=== PATIENT | female | born 1960 | race Caucasian/White ===

== ENCOUNTER → 2018-03-09 | Outpatient (CLI) | payer BC ==
--- NOTE | 2018-03-09 16:07 | WOMENS IMAGING REPORT ---
EXAM DESCRIPTION: BILAT SCREENING MAMMO W/CAD COMPLETED DATE/TIME: 03/09/2018 3:53 pm REASON FOR STUDY: SCREENING [id number] ENCNTR SCREEN MAMMOGRAM FOR MALIGNANT NEOPLASM OF MAITE COMPARISON: 08/28/2014. TECHNIQUE: Standard craniocaudal and mediolateral oblique views of each breast recorded using digita l acquisition. LIMITATIONS: None. FINDINGS: RIGHT BREAST MASSES: No suspicious masses. CALCIFICATIONS: No new or suspicious calcifications. ARCHITECTURAL DISTORTION: None. DEVELOPING DENSITY: Possible developing density in the upper-outer breast, located 10 to 11 cm from t he nipple. ASYMMETRY: None noted. OTHER: No other significant findings. LEFT BREAST MASSES: No suspicious masses. CALCIFICATIONS: No new or suspicious calcifications. ARCHITECTURAL DISTORTION: None. DEVELOPING DENSITY: None. ASYMMETRY: None noted. OTHER: No other significant findings. Read with the assistance of CAD. .[facility] - R2 Cenova Version 1.3 .[facility] - R2 Cenova Version 1.3 .[facility] Imaging - R2 Cenova Version 2.4 .[facility] [place] - R2 Cenova Version 2.4 .[facility] - R2 Radar Signal Processing Engineer Version 9.2 IMPRESSION: Possible developing density in the upper-outer right breast. Stable mammographic appear ance of the left breast. BREAST DENSITY: c. The breasts are heterogeneously dense, which may obscure small masses. BIRAD: 0 Incomplete: Needs Additional Imaging Evaluation and/or prior Mammograms for Comparison. RECOMMENDATION: RECOMMENDED FOLLOW-UP: Recommend additional evaluation with breast tomosynthesis (pr eferred) or compression views of the right breast and ultrasound of the right breast. Recommend rout ine screening mammography of the left breast. The patient will be contacted for additional imaging. COMMENT: The patient has been notified of the results by letter per SA requirements. Additional no tification policies are in place for contacting patient with suspicious or incomplete findings. Quality ID #[id number]: The [employer] recommends an annual screening mammogram for women aged 40 years or over. This facility utilizes a reminder system to ensure that all patients receive reminder letters, and/or direct phone calls for appointments. This includes reminders for routine scr eening mammograms, diagnostic mammograms, or other Breast Imaging Interventions when appropriate. Th is patient will be placed in the appropriate reminder system. The [employer] (ACR) has developed recommendations for screening MRI of the breast s in certain patient populations, to be used in conjunction with mammography. Breast MRI surveillanc e may be appropriate for women with more than 20% lifetime risk of developing breast cancer as deter mined by genetic testing, significant family history of the disease, or history of mantle radiation f or Hodgkins Disease. ACR Practice Guidelines 2008. TECHNICAL DOCUMENTATION: FINDING NUMBER: (1) ASSESSMENT: (1) JOB ID: [id number] [employer]- All Rights Reserved Reading location - IP/workstation name: [email or web address]
== END ==
LOC: WI 15:28
PROVIDERS: ATTEND Family Medicine
DX: Z12.31 Encounter for screening mammogram for malignant neoplasm of breast (principal); R92.2 Inconclusive mammogram
CPT/HCPCS: 77067

== ENCOUNTER → 2018-03-30 | Outpatient (CLI) | payer BC ==
--- NOTE | 2018-03-30 16:52 | WOMENS IMAGING REPORT ---
EXAM DESCRIPTION: RIGHT DIAGNOSTIC MAMMO W/CAD COMPLETED DATE/TIME: 03/30/2018 8:25 am REASON FOR STUDY: N63.11 UNSPECIFIED LUMP IN THE RIGHT BREAST, UPPER OUTER QUADRANT N63.11 UNSPECIF IED LUMP IN THE RIGHT BREAST, UPPER OUTER MARU COMPARISON: Multiple since 2014 TECHNIQUE: Cone compression craniocaudal and mediolateral oblique images of the breast recorded with digital acquisition. Right breast 90 mediolateral view. Right breast ultrasound was also performed LIMITATIONS: None. FINDINGS: BREAST: Right MASSES: No suspicious masses. CALCIFICATIONS: No new or suspicious calcifications. ARCHITECTURAL DISTORTION: None. DEVELOPING DENSITY: None. ASYMMETRY: None noted. OTHER: No other significant findings. Read with the assistance of CAD. .[facility] - R2 Cenova Version 1.3 .[facility] Imaging - R2 Cenova Version 2.1 .[facility] Imaging - R2 Cenova Version 2.4 .[facility] - R2 Cenova Version 2.4 .[facility] - R2 Yarn Bleaching Machine Operator Version 9.2 Right breast ultrasound: Ultrasound of the right breast far upper outer quadrant was performed. No discrete cystic or solid l esions are identified. No focal findings. No worrisome acoustic absorption. IMPRESSION: No mammographic or sonographic evidence for malignancy right breast BREAST DENSITY: c. The breasts are heterogeneously dense, which may obscure small masses. BIRAD: 1 Negative. RECOMMENDATION: RECOMMENDED FOLLOW UP: Please continue yearly bilateral screening mammography/ tomos ynthesis. Please consider yearly bilateral tomosynthesis given heterogeneously dense fibroglandular tissue. SPECIFIC INTERVENTION/IMAGING/CONSULTATION RECOMMENDED:No additional intervention/ imaging/consultati on needed at this time. COMMUNICATION:The negative/benign results were communicated to the patient. COMMENT: The patient has been notified of the results by letter per SA requirements. Additional no tification policies are in place for contacting patient with suspicious or incomplete findings. Quality ID #225: The [employer] recommends an annual screening mammogram for women aged 40 years or over. This facility utilizes a reminder system to ensure that all patients receive reminder letters, and/or direct phone calls for appointments. This includes reminders for routine scr eening mammograms, diagnostic mammograms, or other Breast Imaging Interventions when appropriate. Th is patient will be placed in the appropriate reminder system. The [employer] (ACR) has developed recommendations for screening MRI of the breast s in certain patient populations, to be used in conjunction with mammography. Breast MRI surveillanc e may be appropriate for women with more than 20% lifetime risk of developing breast cancer as deter mined by genetic testing, significant family history of the disease, or history of mantle radiation f or Hodgkins Disease. ACR Practice Guidelines 2008. TECHNICAL DOCUMENTATION: FINDING NUMBER: (1) ASSESSMENT: (1) JOB ID: [id number] [employer]- All Rights Reserved Reading location - IP/workstation name: [email or web address]
--- NOTE | 2018-03-30 17:19 | WOMENS IMAGING REPORT ---
EXAM DESCRIPTION: U/S BREAST UNILAT LIMITED COMPLETE DATE/TIME: 03/30/2018 9:01 am REASON FOR STUDY: N63.11 RIGHT BREAST DENSITY N63.11 UNSPECIFIED LUMP IN THE RIGHT BREAST, UPPER OU TER MARU FINDINGS: Please see combined report for performance of procedure and radiologic supervision and int erpretation. IMPRESSION: Please see combined report for performance of procedure and radiologic supervision and i nterpretation. Reading location - IP/workstation name: [email or web address]
== END ==
LOC: WI 07:49
PROVIDERS: ATTEND Family Medicine
DX: N63.11 Unspecified lump in the right breast, upper outer quadrant (principal)
CPT/HCPCS: 76642

== ENCOUNTER 2018-04-29 06:51 | Observation (INO) | payer BC ==
[2018-04-29] MEDS ORDERED: ASPIRIN 81 MG TABLET, CHEWABLE PO ONE (07:22)
--- NOTE | 2018-04-29 07:30 | RADIOLOGY REPORT (SQ) ---
EXAM: CT head without IV contrast CLINICAL DATA: 58-year-old female with facial droop TECHNICAL DATA: Multiple axial CT images of the brain were performed followed by sagittal and coronal reconstructed images. The CT study is performed according to ALARA (as low as reasonably achievable) or ALARA/IMAGE GENTLY, with automatic adjustment of mA and/or kV according to patient size. Performed on: 04/29/2018 at 6:57 AM Comparisons: None. FINDINGS: There is no evidence of mass, acute mass effect or midline shift. There are no acute extra-axial fluid collections. There is no evidence of acute intracranial hemorrhage. The cerebral sulci and ventricles are normal in size and configuration. There are scattered patchy areas of decreased subcortical and periventricular attenuation most consistent with mild chronic microangiopathy.. There is a very small focal area of encephalomalacia within the right frontal lobe. There is no significant mucosal thickening of the paranasal sinuses. The mastoid air cells are clear. The orbital contents are grossly unremarkable. No acute osseous abnormalities are identified. No focal soft tissue abnormalities are identified. IMPRESSION: 1. There is no evidence of acute intracranial pathology. 2. 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
[2018-04-29 08:27] LABS: ABSOLUTE MONOCYTES (AUTO) 0.3 10^3/uL (0.1-1.4); ABSOLUTE NEUT (AUTO) 1.6 10^3/uL (1.7-8.2); BASOPHILS % (AUTO) 0.7 % (0-2); HEMOGLOBIN 13.3 g/dL (12.0-15.5); LYMPHOCYTES % (AUTO) 33.5 % (13-45); MEAN CORPUSCULAR HEMOGLOBIN 29.5 pg (27.0-33.4); MEAN CORPUSCULAR HGB CONC 34.1 g/dL (32.0-36.0); MEAN CORPUSCULAR VOLUME 86 fl (80-97); MONOCYTES % (AUTO) 10.3 % (3-13); PLATELET COUNT 139 10^3/uL (150-450); RED BLOOD COUNT 4.52 10^6/uL (3.72-5.28); SEGMENTED NEUTROPHILS % (AUTO) 54.5 % (42-78); TOTAL CELLS COUNTED % (AUTO) 100 %
[2018-04-29 08:28] LABS: INTERNATIONAL RATION (INR) 0.93
--- NOTE | 2018-04-29 08:33 | RADIOLOGY REPORT (SQ) ---
EXAM DESCRIPTION: CHEST 2 VIEWS COMPLETED DATE/TIME: 04/29/2018 7:34 am REASON FOR STUDY: facial droop COMPARISON: None. EXAM PARAMETERS: NUMBER OF VIEWS: two views TECHNIQUE: Digital Frontal and Lateral radiographic views of the chest acquired. RADIATION DOSE: NA LIMITATIONS: none FINDINGS: LUNGS AND PLEURA: No opacities, masses or pneumothorax. No pleural effusion. MEDIASTINUM AND HILAR STRUCTURES: No masses or contour abnormalities. HEART AND VASCULAR STRUCTURES: Heart normal size. No evidence for failure. BONES: No acute findings. HARDWARE: None in the chest. OTHER: No other significant finding. IMPRESSION: NO ACUTE RADIOGRAPHIC FINDING IN THE CHEST. TECHNICAL DOCUMENTATION: JOB ID: [id number] [email or web address]- All Rights Reserved Reading location - IP/workstation name: [email or web address]
[2018-04-29 08:51] LABS: ALANINE AMINOTRANSFERASE 40 U/L (9-52); ALBUMIN 4.6 g/dL (3.5-5.0); ALKALINE PHOSPHATASE 73 U/L (38-126); ANION GAP 11 (5-19); ASPARTATE AMINO TRANSFERASE 35 U/L (14-36); BILIRUBIN,DIRECT 0.1 mg/dL (0.0-0.4); BILIRUBIN,TOTAL 0.6 mg/dL (0.2-1.3); BLOOD UREA NITROGEN 20 mg/dL (7-20); CALCIUM 10.3 mg/dL (8.4-10.2); CARBON DIOXIDE 24 mmol/L (22-30); CHLORIDE 105 mmol/L (98-107); CHOLESTEROL 209.06 mg/dL (0-200); CREATINE KINASE 60 U/L (30-135); GLUCOSE 97 mg/dL (75-110); POTASSIUM 3.9 mmol/L (3.6-5.0); SODIUM 140.2 mmol/L (137-145); TOTAL PROTEIN 7.6 g/dL (6.3-8.2); TRIGLYCERIDES 55 mg/dL (<150)
[2018-04-29 09:04] LABS: CREATINE KINASE MB 0.34 ng/mL (<4.55); DIRECT LDL 105 mg/dL (<100)
[2018-04-29 09:09] LABS: TROPONIN I < 0.012 ng/mL
--- NOTE | 2018-04-29 10:15 | ER Document Report ---
ED General - General Chief Complaint: Facial Droop Stated Complaint: FACIAL DROOP Time Seen by Provider: 04/29/18 07:22 TRAVEL OUTSIDE OF THE [place] 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 Patient denies any cardiac issues denies any arrhythmias patient states she does take medication for high blood pressures. Patient denies history of cardiac heart attack or stroke in the past. Patient otherwise resting comfortably upon my evaluation. - Related Data Allergies/Adverse Reactions: No Known Allergies Allergy (Unverified 04/29/18 08:10) Past Medical History - Social History Smoking Status: Never Smoker Frequency of alcohol use: Rare Family History: Reviewed & Not Pertinent Patient has suicidal ideation: No Patient has homicidal ideation: No Renal/ Medical History: Denies: Hx Peritoneal Dialysis Review of Systems - Review of Systems Constitutional: No symptoms reported EENT: No symptoms reported Cardiovascular: No symptoms reported Respiratory: No symptoms reported Gastrointestinal: No symptoms reported Genitourinary: No symptoms reported Female Genitourinary: No symptoms reported Musculoskeletal: No symptoms reported Skin: No symptoms reported Hematologic/Lymphatic: No symptoms reported Neurological/Psychological: Other - Facial drooping difficulty speaking -: Yes All other systems reviewed and negative Physical Exam - Vital signs Vitals: Pulse Resp BP Pulse Ox 80 15 142/79 H 98 04/29/18 07:01 04/29/18 07:01 04/29/18 07:01 04/29/18 07:01 Interpretation: Normal - General General appearance: Appears well, Alert - HEENT Head: Normocephalic, Atraumatic Eyes: Normal Pupils: PERRL - Respiratory Respiratory status: No respiratory distress Chest status: Nontender Breath sounds: Normal Chest palpation: Normal - Cardiovascular Rhythm: Regular Heart sounds: Normal auscultation Murmur: No - Abdominal Inspection: Normal Distension: No distension Bowel sounds: Normal Tenderness: Nontender Organomegaly: No organomegaly - Back Back: Normal, Nontender - Extremities General upper extremity: Normal inspection, Nontender, Normal color, Normal ROM, Normal temperature General lower extremity: Normal inspection, Nontender, Normal color, Normal ROM, Normal temperature, Normal weight bearing. 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 Possible Dockery's palsy versus TIA. Discussed with hospital staff agreed to continue workup with the patient - Vital Signs Vital signs: Temp Pulse Resp BP Pulse Ox 97.9 F 65 16 124/65 100 04/29/18 12:46 04/29/18 12:46 04/29/18 12:46 04/29/18 12:46 04/29/18 12:46 - Laboratory Result Diagrams: 04/29/18 08:02 04/29/18 08:02 Laboratory results interpreted by me: 04/29/18 04/29/18 08:02 08:02 WBC 3.0 L Plt Count 139 L Absolute Neutrophils 1.6 L Est GFR ( Amer) 57 L Est GFR (Non-Af Amer) 47 L Calcium 10.3 H Cholesterol 209.06 H LDL Cholesterol Direct 105 H Discharge - Discharge Clinical Impression: Right facial numbness Condition: Good Disposition: ADMITTED OBSERVATION Admitting Provider: Efrenist - Jemma/[facility]ado Unit Admitted: Telemetry
[2018-04-29] MEDS ORDERED: ACETAMINOPHEN 325 MG TABLET PO PRN (12:14)
[2018-04-29] MEDS: HEPARIN SOD (PORCINE) 5,000 UNIT/ML 1 ML SYRINGE SUBCUT SCH ×2 (15:22→22:42)
--- NOTE | 2018-04-29 15:55 | RADIOLOGY REPORT (SQ) ---
EXAM DESCRIPTION: CAROTID DOPPLER COMPLETED DATE/TIME: 04/29/2018 3:23 pm REASON FOR STUDY: facial numbness COMPARISON: CT brain 04/29/2018 TECHNIQUE: Grayscale ultrasound, Doppler velocity and spectra, and color Doppler images acquired of the extra-cranial carotid and vertebral arteries. Images stored on PACS. LIMITATIONS: None. FINDINGS: RIGHT CAROTID CCA Velocities: Within normal limits. Right common carotid artery peak systolic velocity 0.97 m/sec ICA Velocities Peak systolic 0.62 m/s. End diastolic 0.21 m/s. Proximal ICA/CCA peak systolic ratio normal. Spectra normal. No significant plaque. LEFT CAROTID CCA Velocities: Within normal limits. Left common carotid artery peak systolic velocity 0.92 m/sec ICA Velocities Peak systolic 0.72 m/s. End diastolic 0.23 m/s. Proximal ICA/CCA peak systolic ratio normal. Spectra normal. No significant plaque. VERTEBRAL ARTERIES: Antegrade flow. Normal waveforms. SUBCLAVIAN ARTERIES: Not evaluated OTHER: No other significant finding. IMPRESSION: NO HEMODYNAMICALLY SIGNIFICANT STENOSIS. COMMENT: Quality ID #[id number]: Velocity criteria are extrapolated from the diameter data as defined by t he Society of Radiologists in Ultrasound Consensus Conference. Radiology 2003: 229; 340-346. TECHNICAL DOCUMENTATION: JOB ID: [id number] [employer]- All Rights Reserved Reading location - IP/workstation name: [email or web address]
--- NOTE | 2018-04-29 16:01 | PDOC H&P ---
History of Present Illness Admission Date/PCP: 04/29/18 10:28 WOLFGANG GARCIA MD Patient complains of: Facial numbness. History of Present Illness: FEDERICO MADDEN is a 58 year old female past medical history of hypertension. 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 Does not appear to have any tearing or eye droop. Patient denies any cardiac issues denies any arrhythmias patient states she does take medication for high blood pressures. Patient denies history of cardiac heart attack or stroke in the past. Patient otherwise resting comfortably upon my evaluation. CT of the head was found to be unremarkable and the patient's been referred to the hospitalist for observation and management. 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 [employer] Lives with: Alone Smoking Status: Never Smoker Frequency of Alcohol Use: Rare Hx Recreational Drug Use: No Hx Prescription Drug Abuse: No - Advance Directive Resuscitation Status: Full Code Family History Family History: Reviewed & Not Pertinent Parental Family History Reviewed: Yes Children Family History Reviewed: Yes Sibling(s) Family History Reviewed.: Yes Medication/Allergy Home Medications: Amlodipine Besylate/Benazepril [Amlodipine-Benazepril 5-20 mg] 1 cap PO DAILY 04/29/18 Aspirin [Aspirin 81 mg Chewable Tablet] 81 mg PO DAILY #30 tab.chew 04/30/18 Atorvastatin Calcium [Lipitor 40 mg Tablet] 40 mg PO QHS #30 tablet 04/30/18 Allergies/Adverse Reactions: No Known Allergies Allergy (Unverified 04/29/18 08:10) Review of Systems Constitutional: ABSENT: chills, fever(s), headache(s), weight gain, weight loss Eyes: ABSENT: visual disturbances Ears: ABSENT: hearing changes Cardiovascular: ABSENT: chest pain, dyspnea on exertion, edema, orthropnea, palpitations Respiratory: ABSENT: cough, hemoptysis Gastrointestinal: ABSENT: abdominal pain, constipation, diarrhea, hematemesis, hematochezia, nausea, vomiting Genitourinary: ABSENT: dysuria, hematuria Musculoskeletal: ABSENT: joint swelling Integumentary: ABSENT: rash, wounds Neurological: ABSENT: abnormal gait, abnormal speech, confusion, dizziness, focal weakness, syncope Psychiatric: ABSENT: anxiety, depression, homidical ideation, suicidal ideation Endocrine: ABSENT: cold intolerance, heat intolerance, polydipsia, polyuria Hematologic/Lymphatic: ABSENT: easy bleeding, easy bruising Physical Exam Vital Signs: Temp Pulse Resp BP Pulse Ox 97.9 F 65 16 124/65 100 04/29/18 12:46 04/29/18 12:46 04/29/18 12:46 04/29/18 12:46 04/29/18 12:46 Intake & Output 04/27/18 04/28/18 04/29/18 23:59 23:59 23:59 Weight 82.1 kg General appearance: PRESENT: no acute distress, well-developed, well-nourished Head exam: PRESENT: atraumatic, normocephalic Eye exam: PRESENT: conjunctiva pink, EOMI, PERRLA. ABSENT: scleral icterus Ear exam: PRESENT: normal external ear exam Mouth exam: PRESENT: moist, tongue midline Neck exam: ABSENT: carotid bruit, JVD, lymphadenopathy, thyromegaly Respiratory exam: PRESENT: clear to auscultation tiffanie. ABSENT: rales, rhonchi, wheezes Cardiovascular exam: PRESENT: RRR. ABSENT: diastolic murmur, rubs, systolic murmur Pulses: PRESENT: normal dorsalis pedis pul Vascular exam: PRESENT: normal capillary refill GI/Abdominal exam: PRESENT: normal bowel sounds, soft. ABSENT: distended, guarding, mass, organolmegaly, rebound, tenderness Rectal exam: PRESENT: deferred Extremities exam: PRESENT: full ROM. ABSENT: calf tenderness, clubbing, pedal edema Neurological exam: PRESENT: alert, awake, oriented to person, oriented to place, oriented to time, oriented to situation, CN II-XII grossly intact. ABSENT: motor sensory deficit Psychiatric exam: PRESENT: appropriate affect, normal mood. ABSENT: homicidal ideation, suicidal ideation Skin exam: PRESENT: dry, intact, warm. ABSENT: cyanosis, rash Results Laboratory Results: 04/29/18 08:02 04/29/18 08:02 04/29/18 04/29/18 08:02 08:02 WBC 3.0 L RBC 4.52 Hgb 13.3 Hct 39.0 MCV 86 MCH 29.5 MCHC 34.1 RDW 14.0 Plt Count 139 L Seg Neutrophils % 54.5 Lymphocytes % 33.5 Monocytes % 10.3 Eosinophils % 1.0 Basophils % 0.7 Absolute Neutrophils 1.6 L Absolute Lymphocytes 1.0 Absolute Monocytes 0.3 Absolute Eosinophils 0.0 Absolute Basophils 0.0 Sodium 140.2 Potassium 3.9 Chloride 105 Carbon Dioxide 24 Anion Gap 11 BUN 20 Creatinine 1.18 Est GFR ( Amer) 57 L Est GFR (Non-Af Amer) 47 L Glucose 97 Calcium 10.3 H Total Bilirubin 0.6 AST 35 ALT 40 Alkaline Phosphatase 73 Total Protein 7.6 Albumin 4.6 Triglycerides 55 Cholesterol 209.06 H LDL Cholesterol Direct 105 H VLDL Cholesterol 11.0 HDL Cholesterol 74 04/29/18 04/29/18 04/29/18 08:02 08:02 14:20 Creatine Kinase 60 CK-MB (CK-2) 0.34 Troponin I < 0.012 < 0.012 Impressions: Head CT 04/29/18 00:00 IMPRESSION: 1. There is no evidence of acute intracranial pathology. 2. 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 Chest X-Ray 04/29/18 07:22 IMPRESSION: NO ACUTE RADIOGRAPHIC FINDING IN THE CHEST. Assessment & Plan - Diagnosis (1) Right facial numbness Is this a current diagnosis for this admission?: Yes Plan: Will monitor the patient to observation. The patient does have a history of Be ll's palsy. Obtain MRI of the brain as well as carotid imaging. (2) Hypertension Qualifiers: Hypertension type: essential hypertension Qualified Code(s): I10 - Essential (primary) hypertension Is this a current diagnosis for this admission?: Yes Plan: Hold the patient's blood pressure medications for now. - Time Time Spent: 50 to 70 Minutes Medications reviewed and adjusted accordingly: Yes Anticipated discharge: Home Within: within 24 hours Disposition: The patient is a full code. Pending patient's symptomatology and diagnostic findings will reevaluate in the a.m.
--- NOTE | 2018-04-29 20:54 | EKG REPORT ---
SEVERITY:- BORDERLINE ECG - SINUS RHYTHM BORDERLINE T ABNORMALITIES, ANT-LAT LEADS : Confirmed by: Patricia Villalobos MD 29-Apr-2018 20:53:25
--- NOTE | 2018-04-29 21:09 | XCELERA REPORT ---
[address] [address] Transthoracic Echocardiogram Report Name: FEDERICO MADDEN Age: 58 yrs Gender: Female : 1960 Patient Status: Inpatient Patient Location: [address] [place] [address] Study Date: 04/29/2018 02:16 PM Height: 65 in Weight: 182 lb BSA: 1.9 m2 Procedure: A two-dimensional transthoracic echocardiogram with color flow Doppler was performed. Study Quality: Good. Reason For Study: TIA History: TIA. Ordering Physician: SOHEILA HIRSCH Performed By: Marcelina Mahajan Interpretation Summary There is no obvious cardiac source of embolus noted on this transthoracic echocardiogram. Follow-up with a [facility] is suggested if cardiac source is still suspected. In the subcostal region there is a non vascular [id number] cm cystic mass seen.It does not communicate with any organ or vascular structure .? Hematoma. The left ventricle is normal in size. There is normal left ventricular wall thickness. The left ventricular ejection fraction is within normal limits. LV EF is 65% Doppler measurements suggest impaired left ventricular relaxation, which is associated with grade I/IV or mild diastolic dysfunction The left ventricular wall motion is normal. There is no thrombus. There is no ventricular septal defect visualized. The right ventricle is normal in size and function. The right atrium is normal. The left atrial size is normal. The interatrial septum is intact with no evidence for an atrial septal defect. There is no Doppler evidence for an interatrial shunt There is no evidence of mitral valve prolapse. There is no vegetation seen on the mitral valve. There is no mitral valve stenosis. There is a mild amount of mitral regurgitation There is no aortic valvular vegetation. There is no aortic valve stenosis There is no LVOT obstruction. There is a mild to moderate amount of aortic regurgitation There is no tricuspid stenosis. There is a trace amount of tricuspid regurgitation Unable to calculate RVSP due lack of TR jet. There is no pulmonic valvular stenosis. There is no pulmonic valvular regurgitation. The aortic root is normal size. The inferior vena cava appeared normal and decreased > 50% with respiration (RAP 5-10 mmHg) There is no pericardial effusion. There is no obvious cardiac source of embolus noted on this transthoracic echocardiogram. Follow-up with a [facility] is suggested if cardiac source is still suspected In the subcostal region there is a non vascular [id number] cm cystic mass seen.It does not communicate with any organ or vascular structure .? Hematoma. MMode/2D Measurements & Calculations RVDd: 2.9 cm LVIDd: 5.2 cm FS: 30.8 % Ao root diam: 3.2 cm IVSd: 0.88 cm LVIDs: 3.6 cm EDV(Teich): LVPWd: 0.88 cm 127.7 ml Ao root area: ESV(Teich): 8.0 cm2 53.6 ml LA dimension: EF(Teich): 58.0 % 3.2 cm LVLd ap4: 8.4 cm SV(MOD-sp4): EDV(MOD-sp4): 67.0 ml 108.0 ml LVLs ap4: 6.4 cm ESV(MOD-sp4): 41.0 ml EF(MOD-sp4): 62.0 % Doppler Measurements & Calculations MV E max darian: MV P1/2t max darian: Ao V2 max: AI max darian: 80.9 cm/sec 81.9 cm/sec 145.9 cm/sec 451.1 cm/sec MV A max darian: MV P1/2t: 67.0 msec Ao max P.5 mmHgAI max P.3 cm/sec MVA(P1/2t): 3.3 cm2 81.4 mmHg MV E/A: 0.90 MV dec slope: AI dec slope: 217.7 cm/sec2 358.2 cm/sec2 AI P1/2t: MV dec time: 606.9 msec 0.22 sec LV V1 max PG: PA V2 max: AV P1/2t-pr_phl: MV P1/2t-pr_phl: 3.7 mmHg 82.9 cm/sec 606.9 msec 67.0 msec LV V1 max: PA max P.8 mmHg 95.8 cm/sec Left Ventricle The left ventricle is normal in size. There is normal left ventricular wall thickness. The left ventricular ejection fraction is within normal limits. LV EF is 65%. Doppler measurements suggest impaired left ventricular relaxation, which is associated with grade I/IV or mild diastolic dysfunction. The left ventricular wall motion is normal. There is no thrombus. There is no ventricular septal defect visualized. Right Ventricle The right ventricle is normal in size and function. Atria The right atrium is normal. The left atrial size is normal. The interatrial septum is intact with no evidence for an atrial septal defect. There is no Doppler evidence for an interatrial shunt. Mitral Valve There is no evidence of mitral valve prolapse. There is no vegetation seen on the mitral valve. There is no mitral valve stenosis. There is a mild amount of mitral regurgitation. Aortic Valve There is no aortic valvular vegetation. There is no aortic valve stenosis. There is no LVOT obstruction. There is a mild to moderate amount of aortic regurgitation. Tricuspid Valve There is no tricuspid stenosis. There is a trace amount of tricuspid regurgitation. Unable to calculate RVSP due lack of TR jet. Pulmonic Valve There is no pulmonic valvular stenosis. There is no pulmonic valvular regurgitation. Great Vessels The aortic root is normal size. The inferior vena cava appeared normal and decreased > 50% with respiration (RAP 5-10 mmHg). Effusions There is no pericardial effusion. : SOHEILA HIRSCH > Patricia Villalobos
[2018-04-29] MEDS ORDERED: ATORVASTATIN CALCIUM 40 MG TABLET PO SCH (22:00)
--- NOTE | 2018-04-29 22:44 | RADIOLOGY REPORT (SQ) ---
EXAM DESCRIPTION: MR BRAIN WITHOUT IV CONTRAST COMPLETED DATE/TME: 04/29/2018 00:00 CLINICAL HISTORY: Facial numbness COMPARISON: None TECHNIQUE: Multiplanar images of the brain were obtained without the administration of intravenous contrast FINDINGS: Ventricles and sulci appear within normal limits for the patient's age. No evidence of midline shift or mass effect. There are low-lying cerebellar tonsils extending 5 mm below the level of the basion opisthion line. Previous areas of infarct in the cerebellar hemispheres bilaterally. Punctate focus of lacunar infarct in the right caudate. Old infarct in the right frontal lobe. No areas of restricted diffusion to suggest acute infarct. Small amount of hemosiderin in the right frontal region along the region of previous infarct as well as some associated gliosis. No extra-axial fluid collection is noted. IMPRESSION: No acute infarct Low-lying cerebellar tonsils Areas of previous infarct in the right frontal lobe and in the cerebellar hemispheres bilaterally Distal vertebral arteries and basilar artery are small in caliber
[2018-04-30] MEDS: HEPARIN SOD (PORCINE) 5,000 UNIT/ML 1 ML SYRINGE SUBCUT SCH (05:48)
--- NOTE | 2018-04-30 09:09 | RADIOLOGY REPORT (SQ) ---
EXAM DESCRIPTION: CT CHEST WITH COMPLETED DATE/TIME: 04/30/2018 8:49 am REASON FOR STUDY: [id number] mass per ECHO COMPARISON: None. TECHNIQUE: CT scan of the chest performed using helical scanning technique with dynamic intravenous contrast injection. Images reviewed with lung, soft tissue and bone windows. Reconstructed coronal and sagittal MPR and MIP images reviewed. All images stored on PACS. All CT scanners at this facility use dose modulation, iterative reconstruction, and/or weight based d osing when appropriate to reduce radiation dose to as low as reasonably achievable (ALARA). [facility]: Dose Right [facility]: CareDose [facility]: Dose Right [facility]: Teradose 4D [facility]: [employer] CONTRAST TYPE AND DOSE: contrast/concentration: Isovue 350.00 mg/ml; Total Contrast Delivered: 80.0 ml; Total Saline Delivered: 55.0 ml RENAL FUNCTION: GFR > 60. RADIATION DOSE: CT Rad equipment meets quality standard of care and radiation dose reduction techniq ues were employed. CTDIvol: 7.2 mGy. DLP: 276 mGy-cm. . LIMITATIONS: None. FINDINGS: LUNGS AND PLEURA: No opacities, nodules, masses. No pneumothorax. No effusions. HILAR AND MEDIASTINAL STRUCTURES: No identified masses or abnormal nodes. HEART AND VASCULAR STRUCTURES: No aneurysm or dissection. No central pulmonary emboli. No pericardi al effusion. HARDWARE: None in the chest. UPPER ABDOMEN: Enormous cyst upper pole left kidney measuring over 13 cm partially visualized. Limit ed exam. THYROID AND OTHER SOFT TISSUES: No masses. No adenopathy. BONES: No significant finding. OTHER: No other significant finding. IMPRESSION: Greater than 13 cm cyst left kidney. No mass in the chest. TECHNICAL DOCUMENTATION: JOB ID: [id number] Quality ID # [id number]: Final reports with documentation of one or more dose reduction techniques (e.g., Au tomated exposure control, adjustment of the mA and/or kV according to patient size, use of iterative reconstruction technique) 2010 [employer]- All Rights Reserved Reading location - IP/workstation name: [email or web address]
[2018-04-30] MEDS ORDERED: ASPIRIN 81 MG TABLET, CHEWABLE PO SCH (10:00)
[2018-04-30 12:30] VITALS: BP 110/55
--- NOTE | 2018-04-30 12:36 | EKG REPORT ---
SEVERITY:- BORDERLINE ECG - SINUS RHYTHM BORDERLINE T ABNORMALITIES, ANT-LAT LEADS : Confirmed by: Patricia Villalobos MD 30-Apr-2018 12:35:40
--- NOTE | 2018-04-30 16:33 | PDOC DISCHARGE SUMMARY ---
General - Admit/Disc Date/PCP Admission Date/Primary Care Provider: 04/29/18 10:28 WOLFGANG GARCIA MD Discharge Date: 04/30/18 - Discharge Diagnosis (1) Cerebrovascular disease Is this a current diagnosis for this admission?: Yes Summary: Old infarcts are noted in the right frontal lobe as well cerebellar hemispheres. I have communicated my recommendation for event monitoring for which the patient wants to set up through her primary care. Have started the patient on aspirin and statin therapy. (2) Hypertension Is this a current diagnosis for this admission?: Yes Summary: Resume the patient's home blood pressure medications. I have strongly encouraged the patient to discontinue estrogen. (3) Renal cyst, left Is this a current diagnosis for this admission?: Yes - Additional Information Resuscitation Status: Full Code Discharge Diet: As Tolerated, Cardiac Discharge Activity: Activity As Tolerated Prescriptions: Aspirin [Aspirin 81 mg Chewable Tablet] 81 mg PO DAILY #30 tab.chew Atorvastatin Calcium [Lipitor 40 mg Tablet] 40 mg PO QHS #30 tablet Home Medications: Amlodipine Besylate/Benazepril [Amlodipine-Benazepril 5-20 mg] 1 cap PO DAILY 04/29/18 Aspirin [Aspirin 81 mg Chewable Tablet] 81 mg PO DAILY #30 tab.chew 04/30/18 Atorvastatin Calcium [Lipitor 40 mg Tablet] 40 mg PO QHS #30 tablet 04/30/18 History of Present Illness Patient complains of: Facial numbness History of Present Illness: FEDERICO MADDEN is a 58 year old female past medical history of hypertension. 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 Does not appear to have any tearing or eye droop. Patient denies any cardiac issues denies any arrhythmias patient states she does take medication for high blood pressures. Patient denies history of cardiac heart attack or stroke in the past. Patient otherwise resting comfortably upon my evaluation. CT of the head was found to be unremarkable and the patient's been referred to the hospitalist for observation and management. Hospital Course Hospital Course: The patient was admitted to continuous telemetry unit. Carotid Doppler, echocardiogram, and MRI of the brain was obtained. Findings were consistent with previous CVAs. The patient was allowed permissive hypertension. Necessary therapies were consulted. The patient has been resumed on her home medications however I have charted the patient to discontinue estrogen given the risk however the patient does not want to do this. This conversation will be deferred to her primary care provider. Patient did have findings of a massive renal cyst that was even detected on echocardiogram. Imaging was obtained and appears to be stable the patient states this is being monitored by her primary care provider on outpatient basis. Patient symptoms have resolved and she is ready for discharge. Physical Exam Vital Signs: Temp Pulse Resp BP Pulse Ox 98.1 F 78 18 110/55 L 97 04/30/18 12:28 04/30/18 12:28 04/30/18 12:28 04/30/18 12:28 04/30/18 12:28 Intake & Output 04/28/18 04/29/18 04/30/18 23:59 23:59 23:59 Intake Total 350 100 Balance 350 100 Weight 82.1 kg 81.9 kg General appearance: PRESENT: no acute distress, well-developed, well-nourished Head exam: PRESENT: atraumatic, normocephalic Eye exam: PRESENT: conjunctiva pink, EOMI, PERRLA. ABSENT: scleral icterus Ear exam: PRESENT: normal external ear exam Mouth exam: PRESENT: moist, tongue midline Neck exam: ABSENT: carotid bruit, JVD, lymphadenopathy, thyromegaly Respiratory exam: PRESENT: clear to auscultation tiffanie. ABSENT: rales, rhonchi, wheezes Cardiovascular exam: PRESENT: RRR. ABSENT: diastolic murmur, rubs, systolic murmur Pulses: PRESENT: normal dorsalis pedis pul Vascular exam: PRESENT: normal capillary refill GI/Abdominal exam: PRESENT: normal bowel sounds, soft. ABSENT: distended, guarding, mass, organolmegaly, rebound, tenderness Rectal exam: PRESENT: deferred Extremities exam: PRESENT: full ROM. ABSENT: calf tenderness, clubbing, pedal edema Neurological exam: PRESENT: alert, awake, oriented to person, oriented to place, oriented to time, oriented to situation, CN II-XII grossly intact. ABSENT: motor sensory deficit Psychiatric exam: PRESENT: appropriate affect, normal mood. ABSENT: homicidal ideation, suicidal ideation Skin exam: PRESENT: dry, intact, warm. ABSENT: cyanosis, rash Results Laboratory Results: WBC 3.0 10^3/uL (4.0-10.5) L 04/29/18 08:02 RBC 4.52 10^6/uL (3.72-5.28) 04/29/18 08:02 Hgb 13.3 g/dL (12.0-15.5) 04/29/18 08:02 Hct 39.0 % (36.0-47.0) 04/29/18 08:02 MCV 86 fl (80-97) 04/29/18 08:02 MCH 29.5 pg (27.0-33.4) 04/29/18 08:02 MCHC 34.1 g/dL (32.0-36.0) 04/29/18 08:02 RDW 14.0 % (11.5-14.0) 04/29/18 08:02 Plt Count 139 10^3/uL (150-450) L 04/29/18 08:02 Seg Neutrophils % 54.5 % (42-78) 04/29/18 08:02 Lymphocytes % 33.5 % (13-45) 04/29/18 08:02 Monocytes % 10.3 % (3-13) 04/29/18 08:02 Eosinophils % 1.0 % (0-6) 04/29/18 08:02 Basophils % 0.7 % (0-2) 04/29/18 08:02 Absolute Neutrophils 1.6 10^3/uL (1.7-8.2) L 04/29/18 08:02 Absolute Lymphocytes 1.0 10^3/uL (0.5-4.7) 04/29/18 08:02 Absolute Monocytes 0.3 10^3/uL (0.1-1.4) 04/29/18 08:02 Absolute Eosinophils 0.0 10^3/uL (0.0-0.6) 04/29/18 08:02 Absolute Basophils 0.0 10^3/uL (0.0-0.2) 04/29/18 08:02 PT 13.0 SEC (11.4-15.4) 04/29/18 08:02 INR 0.93 04/29/18 08:02 Sodium 140.2 mmol/L (137-145) 04/29/18 08:02 Potassium 3.9 mmol/L (3.6-5.0) 04/29/18 08:02 Chloride 105 mmol/L (98-107) 04/29/18 08:02 Carbon Dioxide 24 mmol/L (22-30) 04/29/18 08:02 Anion Gap 11 (5-19) 04/29/18 08:02 BUN 20 mg/dL (7-20) 04/29/18 08:02 Creatinine 1.18 mg/dL (0.52-1.25) 04/29/18 08:02 Est GFR ( Amer) 57 (>60) L 04/29/18 08:02 Est GFR (Non-Af Amer) 47 (>60) L 04/29/18 08:02 Glucose 97 mg/dL (75-110) 04/29/18 08:02 Calcium 10.3 mg/dL (8.4-10.2) H 04/29/18 08:02 Total Bilirubin 0.6 mg/dL (0.2-1.3) 04/29/18 08:02 Direct Bilirubin 0.1 mg/dL (0.0-0.4) 04/29/18 08:02 Neonat Total Bilirubin Not Reportable 04/29/18 08:02 Neonat Direct Bilirubin Not Reportable 04/29/18 08:02 Neonat Indirect Bili Not Reportable 04/29/18 08:02 AST 35 U/L (14-36) 04/29/18 08:02 ALT 40 U/L (9-52) 04/29/18 08:02 Alkaline Phosphatase 73 U/L (38-126) 04/29/18 08:02 Creatine Kinase 60 U/L (30-135) 04/29/18 08:02 CK-MB (CK-2) 0.34 ng/mL (<4.55) 04/29/18 08:02 Troponin I < 0.012 ng/mL 04/29/18 14:20 Total Protein 7.6 g/dL (6.3-8.2) 04/29/18 08:02 Albumin 4.6 g/dL (3.5-5.0) 04/29/18 08:02 Triglycerides 55 mg/dL (<150) 04/29/18 08:02 Cholesterol 209.06 mg/dL (0-200) H 04/29/18 08:02 LDL Cholesterol Direct 105 mg/dL (<100) H 04/29/18 08:02 VLDL Cholesterol 11.0 mg/dL (10-31) 04/29/18 08:02 HDL Cholesterol 74 mg/dL (>40) 04/29/18 08:02 Impressions: Carotid Doppler Study 04/29/18 00:00 IMPRESSION: NO HEMODYNAMICALLY SIGNIFICANT STENOSIS. Head CT 04/29/18 00:00 IMPRESSION: 1. There is no evidence of acute intracranial pathology. 2. 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 Head MRI 04/29/18 00:00 IMPRESSION: No acute infarct Low-lying cerebellar tonsils Areas of previous infarct in the right frontal lobe and in the cerebellar hemispheres bilaterally Distal vertebral arteries and basilar artery are small in caliber Chest X-Ray 04/29/18 07:22 IMPRESSION: NO ACUTE RADIOGRAPHIC FINDING IN THE CHEST. Chest CT 04/30/18 00:00 IMPRESSION: Greater than 13 cm cyst left kidney. No mass in the chest. Qualifiers - * PATIENT BEING DISCHARGED WITH ANY OF THE FOLLOWING DIAGNOSIS: Stroke Stroke Pt being discharged on Anti-thrombolytic therapy?: Yes Stroke Pt being discharged on Anti-coagulation therapy?: No Reason(s) for not prescribing Anti-coagulation therapy:: Not indicated Stroke Pt being discharged on Statins?: Yes Plan Time Spent: Less than 30 Minutes
== END 2018-04-30 12:53 | disposition home or self-care (01) ==
LOC: ER 06:51 → EH 10:28 → 3S 12:45
PROVIDERS: ADMIT Internal Medicine; ATTEND Internal Medicine
DX: I67.9 Cerebrovascular disease, unspecified (principal); I10 Essential (primary) hypertension; N28.1 Cyst of kidney, acquired; Z86.73 Personal history of transient ischemic attack (TIA), and cerebral infarction without residual deficits; Z86.69 Personal history of other diseases of the nervous system and sense organs; Z79.82 Long term (current) use of aspirin; Z79.899 Other long term (current) drug therapy
CPT/HCPCS: 93005 ×2; 99285; 36415; 82553; 82550; 85025; 85610; 80053; 84484; 80061; 93306; 93880; 70551; 71046; 70450; 71260; 93010 ×2; G0378 ×3; J3490 ×2

== ENCOUNTER → 2019-09-01 | Outpatient (CLI) | payer BC ==
--- NOTE | 2019-09-01 13:21 | WOMENS IMAGING REPORT ---
EXAM DESCRIPTION: BILAT SCREENING MAMMO W/CAD IMAGES COMPLETED DATE/TIME: 09/01/2019 10:20 am REASON FOR STUDY: Z12.31 ENCNTR SCREEN MAMMOGRAM FOR MALIGNANT NEOPLASM OF BREAST Z12.31 ENCNTR SCR EEN MAMMOGRAM FOR MALIGNANT NEOPLASM OF [place]ITE COMPARISON: 2014, 2018. EXAM PARAMETERS: Standard craniocaudal and mediolateral oblique views of each breast recorded using digital acquisition. Read with the assistance of CAD. .[facility] - [employer] Technician Version 9.2 LIMITATIONS: None. FINDINGS: No suspicious masses, suspicious calcifications or architectural distortion. No areas of c oncern. IMPRESSION: NEGATIVE MAMMOGRAM. BIRADS 1 BREAST DENSITY: c. The breasts are heterogeneously dense, which may obscure small masses. BIRAD: ASSESSMENT: 1 NEGATIVE RECOMMENDATION: ROUTINE SCREENING COMMENT: The patient has been notified of the results by letter per MQSA requirements. Additional no tification policies are in place for contacting patient with suspicious or incomplete findings. Quality ID #[id number]: The [employer] recommends an annual screening mammogram for women aged 40 years or over. This facility utilizes a reminder system to ensure that all patients receive reminder letters, and/or direct phone calls for appointments. This includes reminders for routine scr eening mammograms, diagnostic mammograms, or other Breast Imaging Interventions when appropriate. Th is patient will be placed in the appropriate reminder system. TECHNICAL DOCUMENTATION: FINDING NUMBER: (1) ASSESSMENT: (1) JOB ID: [id number] 2010 [employer]- All Rights Reserved Reading location - IP/workstation name: [email or web address]
== END ==
LOC: WI 10:04
PROVIDERS: ATTEND Family Medicine
DX: Z12.31 Encounter for screening mammogram for malignant neoplasm of breast (principal)
CPT/HCPCS: 77067